=== PATIENT | male | born 1985 | race Caucasian/White ===

== ENCOUNTER 2017-05-16 18:09 | Emergency (ER) | payer BC ==
[~2017-05-16] VITALS: Ht 172.7 cm; Wt 70.5 kg
[2017-05-16] MEDS ORDERED: ADDE10CA3 PO (18:35)
[2017-05-16] MEDS ORDERED: celexa PO (18:35)
[2017-05-16] MEDS ORDERED: ADDE20CA3 PO (18:35)
[2017-05-16] MEDS ORDERED: XANA1TAB2 PO (18:35)
[2017-05-16] MEDS ORDERED: ACETAMINOPHEN 325 MG TAB PO ONE (19:15)
[2017-05-16 19:59] VITALS: BP 144/77
--- NOTE | 2017-05-16 21:13 | REP ---
Clinical: Cough . Comparison: None . Technique: PA and lateral. Findings: The mediastinum and cardiac silhouette are normal. The lung reyez are clear and without acute consolidation, effusion, or pneumothorax. The skeletal structures are intact and normal. Impression: 1. No acute cardiopulmonary process. Signed by Keanu Kaur MD 05/16/2017 09:05 P
== END 2017-05-16 20:05 | disposition home or self-care (01) ==
LOC: M ED 18:09
DX: J06.9 Acute upper respiratory infection, unspecified (principal); B34.9 Viral infection, unspecified; F90.9 Attention-deficit hyperactivity disorder, unspecified type; F17.210 Nicotine dependence, cigarettes, uncomplicated; Z87.09 Personal history of other diseases of the respiratory system; Z87.442 Personal history of urinary calculi; Z79.899 Other long term (current) drug therapy; Z79.1 Long term (current) use of non-steroidal anti-inflammatories (NSAID); Z88.0 Allergy status to penicillin

== ENCOUNTER 2018-05-22 23:28 | Emergency (ER) | payer BC ==
[2018-05-23] MEDS: CLINDAMYCIN 150 MG CAP PO (01:20)
[2018-05-23] MEDS: LIDOCAINE VISCOUS 2% SOLN 15ML UDC SSP (01:21)
== END 2018-05-23 01:25 | disposition home or self-care (01) ==
LOC: M ED 23:28
DX: K08.89 Other specified disorders of teeth and supporting structures (principal); K02.9 Dental caries, unspecified; J06.9 Acute upper respiratory infection, unspecified; F17.210 Nicotine dependence, cigarettes, uncomplicated; Z88.0 Allergy status to penicillin; Z79.899 Other long term (current) drug therapy; Z79.1 Long term (current) use of non-steroidal anti-inflammatories (NSAID)
CPT/HCPCS: 99283